=== PATIENT | female | born 1955 | race Caucasian/White ===

== ENCOUNTER 2017-10-31 12:13 | Day surgery (SDC) | payer BC ==
[2017-10-31 12:46] VITALS: RESP 18
[2017-10-31 12:50] VITALS: TEMP 97.9
[2017-10-31 13:20] VITALS: BP 141/78; PULSE 65
--- NOTE | 2017-10-31 13:35 | US ---
ULTRASOUND GUIDED FNA THYROID BIOPSY: CLINICAL HISTORY: Right thyroid nodule FINDINGS: The procedure was explained to the patient. The risks, complications, benefits and alternatives were discussed and any questions were answered. Informed consent was obtained. Patient was placed supin e on the ultrasound table and prepped and draped in the usual sterile fashion. Utilizing a 25 gauge needle, five passes were made into the requested right thyroid nodule. Patient was stable throughout the procedure. Pathology is pending. All elements of maximal barrier technique were utilized. IMPRESSION: 1. Successful ultrasound guided FNA thyroid biopsy.
== END 2017-10-31 14:00 | disposition home or self-care (01) ==
LOC: RADPROMAIN 12:13
PROVIDERS: ATTEND Otolaryngology
DX: E04.1 Nontoxic single thyroid nodule (principal)
CPT/HCPCS: 10022; 76942; 88173; 88305

== ENCOUNTER → 2018-02-11 | Outpatient (CLI) | payer BC ==
--- NOTE | 2018-02-11 14:09 | US ---
EXAMINATION TYPE: US thyroid st tissue head/neck DATE OF EXAM: 02/11/2018 COMPARISON: NONE CLINICAL HISTORY: 62-year-old female E04.1 Thyroid nodule. History of FNA TECHNIQUE: Multiple sonographic images of the thyroid gland are obtained. FINDINGS: GLAND SIZE: Right Lobe: 3.0 x 1.1 x 1.4 cm Overall Parenchyma: heterogenous Left Lobe: 4.8 x 1.6 x 2.8 cm Overall Parenchyma: heterogeneous Isthmus Thickness: 0.7 cm NODULES RIGHT: # of nodules measured on right: 1 1. 0.9 X 0.9 x 0.8 cm hypoechoic solid nodule at the lower pole with well-defined margins. This no dule is wider than tall and shows intranodular vascularity. Prior size: VP CONSTRUCTION LEFT: # of nodules measured on left: 0 ISTHMUS: # of nodules measured in the isthmus: 1 1. 1.1 X 1.3 x 1.2 cm hypoechoic solid nodule on the right with well-defined margins. This nodule is wider than tall and shows intranodular vascularity. Prior size: Previously measured at 1.3 x 1.1 cm. Bilateral neck scanned, no evidence of lymphadenopathy. IMPRESSION: 1. Right thyroid nodule measuring 9 mm (previously not measured) and previously sampled 1.3 cm right isthmic nodule which remain stable in size. 2. Heterogeneous glandular parenchyma could represent goiter, diffuse thyroiditis, or chronic hypothy roidism.
== END | disposition home or self-care (01) ==
LOC: RADUSWWP 10:49
PROVIDERS: ATTEND Otolaryngology
DX: E04.2 Nontoxic multinodular goiter (principal)
CPT/HCPCS: 76536

== ENCOUNTER → 2018-08-21 | Outpatient (CLI) | payer BC ==
--- NOTE | 2018-08-21 09:02 | US ---
EXAMINATION TYPE: US thyroid st tissue head/neck DATE OF EXAM: 08/21/2018 COMPARISON: 02/11/2018 ultrasound CLINICAL HISTORY: E04.1 thyroid nodule. Follow up thyroid nodules GLAND SIZE: Right Lobe: 2.9 x 1.4 x 1.6 cm Overall Parenchyma: heterogenous Left Lobe: 5.1 x 2.5 x 2.0 cm Overall Parenchyma: heterogeneous Isthmus Thickness: 0.5 cm NODULES RIGHT: # of nodules measured on right: 1 1. 0.8 X 0.7 x 0.7 cm hypoechoic solid nodule at the lower pole with well-defined margins; . This nodule is wider than tall and shows intranodular vascularity. Prior size: 0.9 x 0.9 x 0.8 cm LEFT: # of nodules measured on left: 0 ISTHMUS: # of nodules measured in the isthmus: 1 1. 1.1 X 0.9 x 1.0 cm hypoechoic solid nodule at the right with well-defined margins; . This nodul e is wider than tall and shows intranodular vascularity. Prior size: 1.1 x 1.3 x 1.2 cm IMPRESSION: 1. Stable thyroid nodule within the isthmus. 2. Subcentimeter nodule within the right lobe thyroid
== END | disposition home or self-care (01) ==
LOC: RADUSWWP 06:51
PROVIDERS: ATTEND Otolaryngology
DX: E04.1 Nontoxic single thyroid nodule (principal)
CPT/HCPCS: 76536

== ENCOUNTER → 2019-03-02 | Outpatient (CLI) | payer OTHER ==
--- NOTE | 2019-03-02 09:27 | US ---
EXAMINATION TYPE: US thyroid st tissue head/neck DATE OF EXAM: 03/02/2019 COMPARISON: US dated 08/21/2018 CLINICAL HISTORY: E04.1 Thyroid nodule. F/U previous GLAND SIZE: Right Lobe: 3.4 x 2.0 x 1.6 cm Overall Parenchyma: heterogenous Left Lobe: 4.9 x 2.6 x 1.8 cm Overall Parenchyma: heterogeneous Isthmus Thickness: 0.6 cm NODULES ISTHMUS: # of nodules measured in the isthmus: 1 1. 0.9 X 0.8 x 1.1 cm isoechoic solid nodule with poorly defined margins; This nodule is wider ghazala n tall and shows intranodular vascularity . Prior size: 1.0 x 0.9 x 1.1 cm Bilateral neck scanned, no evidence of lymphadenopathy. Right lobe nodule not visualized on today's e xam/ Isthmus nodule stable. Hypervascular, heterogeneous thyroid. IMPRESSION: Hypervascular diffusely heterogenous thyroid gland suggests thyroiditis. The previously seen right th yroid nodules not clearly separable on today's exam from the diffusely heterogenous echogenic echotex ture. However the isthmic nodule is stable.
== END | disposition home or self-care (01) ==
LOC: RADUSWWP 08:57
PROVIDERS: ATTEND Otolaryngology
DX: E04.1 Nontoxic single thyroid nodule (principal); E07.9 Disorder of thyroid, unspecified
CPT/HCPCS: 76536

== ENCOUNTER → 2019-09-20 | Outpatient (CLI) | payer OTHER ==
--- NOTE | 2019-09-20 11:17 | US ---
EXAMINATION TYPE: US thyroid st tissue head/neck DATE OF EXAM: 09/20/2019 COMPARISON: Thyroid ultrasounds dated 03/02/2019, 08/21/2018 and 02/11/2018 CLINICAL HISTORY: E04.3 THYROID NODULE. Follow up thyroid nodules GLAND SIZE: Right Lobe: 3.4 x 1.3 x 1.7 cm Overall Parenchyma: heterogenous Left Lobe: 5.0 x 1.8 x 2.0 cm Overall Parenchyma: heterogeneous Isthmus Thickness: 0.6 cm NODULES RIGHT: # of nodules measured on right: 0 LEFT: # of nodules measured on left: 0 ISTHMUS: # of nodules measured in the isthmus: 1 1. 0.9 X 0.8 x 0.9 cm isoechoic solid nodule with poorly defined margins; . This nodule is wider t veras tall and shows intranodular vascularity. Prior size: 0.9 x 0.8 x 1.1 cm Bilateral neck scanned, no evidence of abnormal lymphadenopathy. IMPRESSION: Is diffusely heterogenous and enlarged thyroid gland. Again correlation for thyroiditis is recommende d. Continued stability of the isthmic thyroid nodule.
== END | disposition home or self-care (01) ==
LOC: RADUSWWP 10:44
PROVIDERS: ATTEND Otolaryngology
DX: E04.1 Nontoxic single thyroid nodule (principal)
CPT/HCPCS: 76536

== ENCOUNTER → 2020-04-06 | Outpatient (CLI) | payer OTHER ==
--- NOTE | 2020-04-06 11:48 | US ---
EXAMINATION TYPE: US thyroid st tissue head/neck DATE OF EXAM: 04/06/2020 COMPARISON: NONE CLINICAL HISTORY: E04.1 THYROID NODULE. thyroid nodule GLAND SIZE: Right Lobe: 3.0 x .9 x 1.1 cm Overall Parenchyma: heterogenous Left Lobe: 4.8 x 1.7 x 1.4 cm Overall Parenchyma: heterogeneous Isthmus Thickness: .6 cm NODULES RIGHT: # of nodules measured on right: 0 LEFT: # of nodules measured on left: 0 ISTHMUS: # of nodules measured in the isthmus: 1 1. .8 X .5 x .7 cm hypoechoic solid nodule at the mid pole with poorly defined margins; . This nod ule is wider than tall and shows no intranodular vascularity. Prior size: .9 x .8 x .9 cm Bilateral neck scanned, no evidence of lymphadenopathy. IMPRESSION: 1. Subcentimeter nodule within the isthmus of the thyroid.
== END | disposition home or self-care (01) ==
LOC: RADUSWWP 10:50
PROVIDERS: ATTEND Otolaryngology
DX: E04.1 Nontoxic single thyroid nodule (principal)
CPT/HCPCS: 76536

== ENCOUNTER → 2021-04-03 | Outpatient (CLI) | payer MEDICARE, OTHER ==
--- NOTE | 2021-04-04 07:24 | US ---
EXAMINATION TYPE: US thyroid st tissue head/neck DATE OF EXAM: 04/03/2021 COMPARISON: 04/06/2020 CLINICAL HISTORY: E04.1 thyroid nodule. f/u GLAND SIZE: Right Lobe: 2.9 x 1.0 x 0.9 cm Overall Parenchyma: heterogenous Left Lobe: 3.9 x 1.1 x 1.3 cm Overall Parenchyma: heterogeneous Isthmus Thickness: 0.5 cm NODULES RIGHT: # of nodules measured on right: 0 LEFT: # of nodules measured on left: 0 ISTHMUS: # of nodules measured in the isthmus: 0 Bilateral neck scanned, no evidence of lymphadenopathy. IMPRESSION: No definite solid thyroid nodules are identified. 2017 ACR TI-RADS LEVEL: TR-RADS 1 - BENIGN: No FNA *Highest TI-RADS level nodule reported
== END | disposition home or self-care (01) ==
LOC: RADUSWWP 16:05
PROVIDERS: ATTEND Otolaryngology
DX: E04.1 Nontoxic single thyroid nodule (principal)
CPT/HCPCS: 76536

== ENCOUNTER → 2023-06-27 | Outpatient (CLI) | payer MEDICARE, OTHER ==
[2023-06-27 15:33] LABS: ALT 31 U/L (4-34); AST 33 U/L (14-36); African American GFR (CKD) >90 (>60 ml/min/1.73 sqM); Albumin/Globulin Ratio 1.2; Alkaline Phosphatase 73 U/L (38-126); Anion Gap 13 mmol/L; Blood Urea Nitrogen 13 mg/dL (7-17); Calcium 10.6 mg/dL (8.4-10.2); Carbon Dioxide 27 mmol/L (22-30); Chloride 95 mmol/L (98-107); Globulin 4.3 g/dL; Glucose 112 mg/dL (74-99); Non-African American GFR(CKD) >90 (>60 ml/min/1.73 sqM); Potassium 3.7 mmol/L (3.5-5.1); Sodium 135 mmol/L (137-145); Total Protein 9.3 g/dL (6.3-8.2)
[2023-06-27 15:41] LABS: NT-Pro-B-Type Natriuretic Pept 38 pg/mL
[2023-06-27 15:44] LABS: Creatine Kinase MB 0.9 ng/mL (0.0-3.4); Troponin I <0.012 ng/mL (0.000-0.034)
== END | disposition home or self-care (01) ==
LOC: LABWHC1 14:03
PROVIDERS: ATTEND Family Medicine
DX: R94.31 Abnormal electrocardiogram [ECG] [EKG] (principal)
CPT/HCPCS: 36415; 80053; 82553; 83880; 84484; 85379

== ENCOUNTER 2023-06-29 11:01 | Observation (INO) | payer MEDICARE, OTHER ==
[2023-06-29 12:04] LABS: Basophils % (A) 0 %; Eosinophils % (A) 0 %; HCT 44.4 % (34.0-46.0); HGB 16.5 gm/dL (11.4-16.0); Hyperchromasia Slight; Lymphocytes # (A) 2.1 k/uL (1.0-4.8); Lymphocytes % (A) 21 %; MCH 39.3 pg (25.0-35.0); MCHC 37.1 g/dL (31.0-37.0); Macrocytosis Moderate; Mean Platelet Volume 6.9; Monocytes # (A) 2.3 k/uL (0-1.0); Monocytes % (A) 23 %; Neutrophils # (A) 5.5 k/uL (1.3-7.7); Neutrophils % (A) 54 %; Platelet Count 171 k/uL (150-450); RBC 4.19 m/uL (3.80-5.40); RDW 14.2 % (11.5-15.5); WBC 10.1 k/uL (3.8-10.6)
[2023-06-29 12:23] LABS: African American GFR (CKD) >90 (>60 ml/min/1.73 sqM); Anion Gap 9 mmol/L; Blood Urea Nitrogen 11 mg/dL (7-17); Calcium 10.5 mg/dL (8.4-10.2); Carbon Dioxide 31 mmol/L (22-30); Chloride 92 mmol/L (98-107); Glucose 135 mg/dL (74-99); Magnesium 1.8 mg/dL (1.6-2.3); Non-African American GFR(CKD) >90 (>60 ml/min/1.73 sqM); Potassium 3.5 mmol/L (3.5-5.1); Sodium 132 mmol/L (137-145)
--- NOTE | 2023-06-29 12:47 | ED ---
General Adult HPI - General Chief complaint: Neuro Symptoms/Deficit Stated complaint: facial numbness-abn EKG Time Seen by Provider: 06/29/23 12:02 Source: patient Mode of arrival: ambulatory Limitations: no limitations - History of Present Illness Initial comments: This patient is a 67-year-old woman who comes here to have evaluation of a constellation of symptoms that been going on intermittently for the past 3 weeks or so. The patient states she gets upper chest pain that seems to spread to her neck or jaw. She states it will come on and last about 15-20 minutes at a time. Does not seem to be exertional. She has not noted worsening or relieving factors. She usually has some associated bilateral facial numbness. She states that she did see her primary physician on Friday, where they performed an ECG and then had her go for a blood tests. She does not know the blood test or results but states that they were then attempted to have her follow with cardiology. Patient states that she had another episode of the symptoms at 9 AM today that seemed to be lasting longer and was more severe. No associated diaphoresis, dyspnea, palpitations, lightheadedness or syncope. Onset/Timin -: week(s) Location: chest Radiation: neck Quality: dull Consistency: intermittent Improves with: none Worsens with: none Treatments Prior to Arrival: none - Related Data Home Medications Medication Instructions Recorded Confirmed Losartan/Hydrochlorothiazide 1 tab PO DAILY 10/21/17 06/29/23 [Losartan-Hctz 100-25 mg Tab] Multivit-Min/FA/Lycopen/Lutein 1 tab PO DAILY 10/21/17 06/29/23 [Centrum Silver Tablet] atenoloL [Tenormin] 25 mg PO DAILY 10/21/17 06/29/23 Alendronate Sodium 70 mg PO WE 06/29/23 06/29/23 Levothyroxine Sodium [Synthroid] 87.5 mcg PO LOPEZ 06/29/23 06/29/23 Levothyroxine Sodium [Synthroid] 175 mcg PO MOTUWETHFRSA 06/29/23 06/29/23 Potassium Chloride ER [K-Dur 20] 20 meq PO DAILY 06/29/23 06/29/23 Pravastatin Sodium [Pravachol] 40 mg PO HS 06/29/23 06/29/23 amLODIPine [Norvasc] 2.5 mg PO DAILY 06/29/23 06/29/23 Allergies Allergy/AdvReac Type Severity Reaction Status Date / Time No Known Allergies Allergy Verified 06/29/23 15:02 Review of Systems ROS Statement: Those systems with pertinent positive or pertinent negative responses have been documented in the HPI. ROS Other: All systems not noted in ROS Statement are negative. Constitutional: Denies: fever, chills, weakness Eyes: Denies: vision change Respiratory: Denies: cough, dyspnea Cardiovascular: Reports: as per HPI, chest pain. Denies: palpitations, edema, syncope Gastrointestinal: Denies: abdominal pain, nausea, vomiting, diarrhea Genitourinary: Denies: dysuria, hematuria Musculoskeletal: Denies: back pain Skin: Denies: rash Neurological: Reports: as per HPI, paresthesias. Denies: headache, weakness, numbness Past Medical History Past Medical History: Hyperlipidemia, Hypertension, Rheumatoid Arthritis (RA), Thyroid Disorder Additional Past Medical History / Comment(s): underactive thyroid, History of Any Multi-Drug Resistant Organisms: None Reported Past Surgical History: Adenoidectomy, Appendectomy, Tonsillectomy Past Anesthesia/Blood Transfusion Reactions: No Reported Reaction Past Psychological History: No Psychological Hx Reported Smoking Status: Never smoker Past Alcohol Use History: Occasional Past Drug Use History: None Reported - Past Family History Father Family Medical History: Hyperlipidemia, Thyroid Disorder Mother Family Medical History: Hypertension, Thyroid Disorder General Exam Limitations: no limitations General appearance: alert, in no apparent distress Head exam: Present: atraumatic, normocephalic Eye exam: Present: normal appearance. Absent: scleral icterus, conjunctival injection ENT exam: Present: normal oropharynx Neck exam: Present: normal inspection, full ROM Respiratory exam: Present: normal lung sounds bilaterally. Absent: respiratory distress, wheezes, rales, rhonchi, stridor Cardiovascular Exam: Present: regular rate, normal rhythm, normal heart sounds. Absent: systolic murmur, diastolic murmur, rubs, gallop GI/Abdominal exam: Present: soft. Absent: distended, tenderness, guarding, rebound, rigid, mass Extremities exam: Present: normal inspection, normal capillary refill. Absent: pedal edema, calf tenderness Back exam: Present: normal inspection. Absent: CVA tenderness (R), CVA tenderness (L) Neurological exam: Present: alert Skin exam: Present: warm, dry, intact, normal color. Absent: rash Course Vital Signs 06/29/23 06/29/23 06/29/23 11:16 14:50 18:27 Temperature 98.1 F Pulse Rate 58 L 57 L 68 Pulse Rate [ Pulse Oximetery ] Respiratory 20 18 18 Rate Blood Pressure 182/97 157/98 143/107 Blood Pressure [Left Arm] O2 Sat by Pulse 99 97 97 Oximetry 06/29/23 06/30/23 20:29 01:56 Temperature 98.2 F 98.1 F Pulse Rate Pulse Rate [ 56 L 57 L Pulse Oximetery ] Respiratory 16 16 Rate Blood Pressure Blood Pressure 158/95 137/76 [Left Arm] O2 Sat by Pulse 96 96 Oximetry EKG Findings - EKG Results: EKG: interpreted by DENICE, sinus rhythm EKG shows: bradycardia (Rate 57 bpm) - Blocks, [place], Hypertrophy, ST Abn: AV and intraventricular conduction: right bundle branch block (fixed/intermittent, complete/incomplete) QRS axis and voltage: left axis deviation (-30 to -90) (Borderline) Medical Decision Making - Lab Data Result diagrams: 06/29/23 11:40 06/29/23 11:40 Lab Results 06/29/23 06/29/23 06/29/23 Range/Units 11:40 11:40 11:40 WBC 10.1 (3.8-10.6) k/uL RBC 4.19 (3.80-5.40) m/uL Hgb 16.5 H (11.4-16.0) gm/dL Hct 44.4 (34.0-46.0) % MCV 106.0 H (80.0-100.0) fL MCH 39.3 H (25.0-35.0) pg MCHC 37.1 H (31.0-37.0) g/dL RDW 14.2 (11.5-15.5) % Plt Count 171 (150-450) k/uL MPV 6.9 Neutrophils % 54 % Lymphocytes % 21 % Monocytes % 23 % Eosinophils % 0 % Basophils % 0 % Neutrophils # 5.5 (1.3-7.7) k/uL Lymphocytes # 2.1 (1.0-4.8) k/uL Monocytes # 2.3 H (0-1.0) k/uL Eosinophils # 0.0 (0-0.7) k/uL Basophils # 0.0 (0-0.2) k/uL Hyperchromasia Slight Macrocytosis Moderate Sodium 132 L (137-145) mmol/L Potassium 3.5 (3.5-5.1) mmol/L Chloride 92 L (98-107) mmol/L Carbon Dioxide 31 H (22-30) mmol/L Anion Gap 9 mmol/L BUN 11 (7-17) mg/dL Creatinine 0.59 (0.52-1.04) mg/dL Est GFR (CKD-EPI)AfAm >90 (>60 ml/min/1.73 sqM) Est GFR (CKD-EPI)NonAf >90 (>60 ml/min/1.73 sqM) Glucose 135 H (74-99) mg/dL Calcium 10.5 H (8.4-10.2) mg/dL Magnesium 1.8 (1.6-2.3) mg/dL Troponin I <0.012 (0.000-0.034) ng/mL Disposition Clinical Impression: Chest pain Disposition: ADMITTED IP TO THIS [facility] Condition: Good
--- NOTE | 2023-06-29 13:12 | XR ---
EXAMINATION TYPE: XR chest 2V DATE OF EXAM: 06/29/2023 COMPARISON: NONE TECHNIQUE: PA and lateral views submitted. HISTORY: Chest pain FINDINGS: The lungs are clear and there is no pneumothorax, pleural effusion, or focal pneumonia. Heart size normal and no overt failure. Osseous structures demonstrate hypertrophic and degenerative changes of the spine. Diffuse osteopenia with AC joint arthropathy. IMPRESSION: 1. No acute process.
[2023-06-29] MEDS ORDERED: MORPHINE SULFATE 4 MG/ML SYRINGE IV STA (14:08)
[2023-06-29] MEDS ORDERED: NITROGLYCERIN SL TABS 0.4 MG TAB SUBLINGUAL PRN (14:38)
[2023-06-29] MEDS: SODIUM CHLORIDE 0.9% 1,000 ML IV SCH (14:57)
--- NOTE | 2023-06-29 18:14 | P.HPIM ---
History of Present Illness H&P Date: 06/29/23 67-year-old female with PMH of rheumatoid arthritis, Paco's thyroiditis, thyroid nodules, hypertension, dyslipidemia presents to the ED for chest discomfort. She describes midsternal chest discomfort. She has a difficult time describing her discomfort but closely relates it to burning. The d iscomfort radiates upwards into her neck. She also experiences bilateral lower facial numbness during this time. Patient reports symptoms that has been ongoing over the past 3 weeks. Her symptoms have been intermittent but have been increasing in frequency. This usually lasts for about 10-15 minutes. Not related to meals or exertion. Does not wake her up from sleep. She denies any slurred speech, confusion, focal neurologic deficits. No difficulty swallowing. This morning, her symptoms started while eating breakfast and were persistent which prompted her to come to the ED. She does report peripheral neuropathy. Initially, she was supposed to see cardiology in the outpatient setting but and appointment has not been given to her at this time. She reports no exertional chest pain, shortness of breath, lightheadedness. She denies headache, lower extremity edema, nausea or vomiting, fever or chills, cough, palpitations, changes in urination or bowel habits. No changes in appetite or weight. In the ED, she was noted to have elevated BP of 182/97. She was noted to be bradyca rdic with heart rate of 57. Vital signs otherwise stable. CBC showed hemoglobin of 16.5 and MCV of 106. BMP showed sodium of 132, chloride of 92, bicarb of 31, glucose of 135 and calcium of 10.5. Magnesium was 1.8. Troponin was less than 0.012. EKG showed right bundle branch block. Chest x-ray negative for acute process. Patient is admitted for chest pain, rule out acute coronary syndrome and cardiology consultation. General: non toxic, no distress, appears at stated age Derm: warm, dry Head: atraumatic, normocephalic, symmetric Eyes: EOMI, no lid lag, anicteric sclera Cardiovascular: S1S2 reg, no murmur Lungs: CTA bilateral, no rhonchi, no rales , no accessory muscle use Ext: no gross muscle atrophy, no edema, no contractures Neuro: no focal neuro deficits Psych: Alert, oriented, appropriate affect Chest pain, atypical Bilateral facial numbness Hyperglycemia Sinus bradycardia with right bundle branch block Macrocytosis Hypercalcemia Chronic conditions: Rheumatoid arthritis, Paco's thyroiditis, thyroid nodules, hypertension, dyslipidemia Based on my assessment of this patient, this patient meets a high complexity level of care. Patient has an acute diagnosis of chest pain that poses a threat to life or bodily function. She also describes bilateral facial numbness (cheeks). Chest pain, atypical: Troponins negative x 2. ACS ruled out. Obtain Echocardiogram. Telemetry monitoring. Cardiology consult. Bilateral facial numbness: Patient reports biateral facial numbness when experiencing this chest discomofort. Unlikely to be CVA given bilateral nature and lack of FND. RA is known to cause peripheral neuropathy. Obtain TSH, B12, Folate, A1c, ionized Ca. Obtain thyroid US. Hyperglycemia: A1c. Sinus bradycardia with right bundle branch block: Bradycardia possibly related to Atenolol. Macrocytosis: B12, Folate. Hypercalcemia: Obtain PTH and vitamin D. Chronic conditions: Rheumatoid arthritis, Paco's thyroiditis, thyroid nodules, hypertension, dyslipidemia Heparin for DVT prophylaxis. Brother is decision maker. FULL CODE. I have reviewed the following independent marketing consultant notes: I have reviewed the results of the following tests: CBC, BMP, Mg, Trop, CXR I have ordered the following tests: CMP, Echo, TSH, B12, thyroid US, ionized Ca, thyroid US, PTH, vitamin D I have discussed the care of this patient with the following independent historian: I have independently interpreted the following test below: EKG I have discussed the management of this patient with the following physician: Past Medical History Past Medical History: Hyperlipidemia, Hypertension, Rheumatoid Arthritis (RA), Thyroid Disorder Additional Past Medical History / Comment(s): underactive thyroid, History of Any Multi-Drug Resistant Organisms: None Reported Past Surgical History: Adenoidectomy, Appendectomy, Tonsillectomy Past Anesthesia/Blood Transfusion Reactions: No Reported Reaction Past Psychological History: No Psychological Hx Reported Smoking Status: Never smoker Past Alcohol Use History: Occasional Past Drug Use History: None Reported - Past Family History Father Family Medical History: Hyperlipidemia, Thyroid Disorder Mother Family Medical History: Hypertension, Thyroid Disorder Medications and Allergies Home Medications Medication Instructions Recorded Confirmed Type Losartan/Hydrochlorothiazide 1 tab PO DAILY 10/21/17 06/29/23 History [Losartan-Hctz 100-25 mg Tab] Multivit-Min/FA/Lycopen/Lutein 1 tab PO DAILY 10/21/17 06/29/23 History [Centrum Silver Tablet] atenoloL [Tenormin] 25 mg PO DAILY 10/21/17 06/29/23 History Alendronate Sodium 70 mg PO WE 06/29/23 06/29/23 History Levothyroxine Sodium [Synthroid] 87.5 mcg PO LOPEZ 06/29/23 06/29/23 History Levothyroxine Sodium [Synthroid] 175 mcg PO MOTUWETHFRSA 06/29/23 06/29/23 History Potassium Chloride ER [K-Dur 20] 20 meq PO DAILY 06/29/23 06/29/23 History Pravastatin Sodium [Pravachol] 40 mg PO HS 06/29/23 06/29/23 History amLODIPine [Norvasc] 2.5 mg PO DAILY 06/29/23 06/29/23 History Allergies Allergy/AdvReac Type Severity Reaction Status Date / Time No Known Allergies Allergy Verified 06/29/23 15:02 Physical Exam Vitals: Vital Signs Temp Pulse Resp BP Pulse Ox 06/29/23 14:50 57 L 18 157/98 97 06/29/23 11:16 98.1 F 58 L 20 182/97 99 Intake and Output 06/29/23 06/29/23 06/29/23 06:59 14:59 22:59 Other: Weight 79.832 kg Results CBC & Chem 7: 06/29/23 11:40 06/29/23 11:40 Labs: Abnormal Lab Results - Last 24 Hours (Table) 06/29/23 06/29/23 Range/Units 11:40 11:40 Hgb 16.5 H (11.4-16.0) gm/dL MCV 106.0 H (80.0-100.0) fL MCH 39.3 H (25.0-35.0) pg MCHC 37.1 H (31.0-37.0) g/dL Monocytes # 2.3 H (0-1.0) k/uL Sodium 132 L (137-145) mmol/L Chloride 92 L (98-107) mmol/L Carbon Dioxide 31 H (22-30) mmol/L Glucose 135 H (74-99) mg/dL Calcium 10.5 H (8.4-10.2) mg/dL
[2023-06-29 20:35] VITALS: RESP 16
[2023-06-29] MEDS: FAMOTIDINE 20 MG TAB PO SCH (20:47)
[2023-06-29] MEDS ORDERED: PRAVASTATIN SODIUM 40 MG TAB PO SCH (21:00)
--- NOTE | 2023-06-29 21:17 | US ---
EXAMINATION TYPE: US thyroid st tissue head/neck DATE OF EXAM: 06/29/2023 COMPARISON: 04/04/2021 CLINICAL INDICATION: Female, 67 years old with history of h/o nodules; follow up to previous GLAND SIZE: Right Lobe: 2.9 x .8 x 1..0 cm Overall Parenchyma: heterogenous Left Lobe: 3.2 x 1.5 x 1.1 cm Overall Parenchyma: heterogenous Isthmus Thickness: .5 cm NODULES RIGHT: # of nodules measured on right: 0 LEFT: # of nodules measured on left: 0 ISTHMUS: # of nodules measured in the isthmus: 0 Bilateral neck scanned, no evidence of lymphadenopathy. IMPRESSION: No evidence of thyroid nodules. 2017 ACR TI-RADS LEVEL: 1 *Highest TI-RADS level nodule reported
[2023-06-30] MEDS ORDERED: LEVOTHYROXINE 75 MCG TAB PO SCH (06:30)
[2023-06-30] MEDS ORDERED: LEVOTHYROXINE 88 MCG TAB PO SCH (06:30)
--- NOTE | 2023-06-30 08:53 | P.CRDCN ---
History of Present Illness Consult date: 06/30/23 Consult reason: chest pain History of present illness: History of present illness: This is a 67-year-old female with past medical history of hypertension, hyperlipidemia, hypothyroidism, no previous cardiac history. She does not follow with a tie tape machine operator. She may have had a stress test done many years ago but has never had a cyst cardiac catheterization. We have been asked to evaluate the patient for chest pain. Patient states that she had an onset sensation in her upper chest that since going on and off for the past 3 weeks. It lasts for about 5-10 minutes and goes away on its own. It usually happens while she is at rest. She is normally quite active and it does not occur with activity. She saw her nurse practitioner on Friday and was noted to have an abnormal EKG and plan was for her to have an appointment with a tie tape machine operator. On Friday however, when she got up she was feeling good but after breakfast the chest discomfort came back and it didn't seem to go away. She also states that went up into her neck and face with numbness. She denies any smoking history. She drinks alcohol occasionally. EKG sinus rhythm with right bundle branch block Chest x-ray: No acute process Thyroid ultrasound revealed no nodules WBC 10.1, hemoglobin 16.5, platelet count 171. Sodium 132, potassium 3.5, BUN 11 creatinine 0.59. Blood sugar 135. Calcium 10.5. Troponin negative 3. Folate 40. TSH 0.111 with normal free T4 1 0.9. Home cardiac medications: Amlodipine 2.5 mg daily, atenolol 25 mg daily, losartan hydrochlorothiazide 53936 milligrams 1 daily, potassium chloride 20 mEq daily, pravastatin 40 mg at bedtime, levothyroxine 175 g Friday through Friday and 87.5 on Friday. Review Of Systems: At the time of my evaluation: Constitutional: No fever, no chills. No weakness, fatigue or lethargy. EENT: No headache. No dizziness. Lungs: No shortness of breath, cough, no sputum production. No wheezing. Cardiovascular: No chest pain, no lower extremity edema. No palpitations. No paroxysmal nocturnal dyspnea. No orthopnea. No lightheadedness or dizziness. No syncopal episodes. Abdominal: No abdominal pain. No nausea, vomiting. No diarrhea. No constipation. No bloody or tarry stools. Genitourinary: No dysuria.. No urinary retention. Musculoskeletal: No myalgias. No muscle weakness, no frequent falls. No back pain. No neck pain. Integumentary: No wounds. No rash. No unusual bruising. Neurologic: No aphasia. No facial droop. No change in mentation. No head injury. No headache. Physical examination: Gen: This is a 67-year-old female. She is resting but appears very comfortable and in no acute distress VS: reviewed HEENT: Head is atraumatic, normocephalic. Pupils equal, round. Sclerae is anicteric. NECK: Supple. No JVD. LUNGS: Clear to auscultation. No wheezes or rhonchi. No intercostal retractions. HEART: Regular rate and rhythm. No murmur. ABDOMEN: Soft No tenderness. EXTREMITIES: No pedal edema. No calf tenderness. NEUROLOGICAL: Patient is awake, alert and oriented x3. Assessment: Atypical chest pain, acute coronary syndrome ruled out Hypertension Hyperlipidemia Hypothyroidism Plan: Resume patient's home diabetic medications Obtain stress echocardiogram Obtain 2-D echocardiogram and Doppler study to assess cardiac structure and function Further recommendations to follow based upon clinical course Thank you kindly for this consultation. Nurse practitioner note has been reviewed, I agree with documented findings and plan of care. Patient was seen and examined. Past Medical History Past Medical History: Hyperlipidemia, Hypertension, Rheumatoid Arthritis (RA), Thyroid Disorder Additional Past Medical History / Comment(s): underactive thyroid, History of Any Multi-Drug Resistant Organisms: None Reported Past Surgical History: Adenoidectomy, Appendectomy, Tonsillectomy Past Anesthesia/Blood Transfusion Reactions: No Reported Reaction Past Psychological History: No Psychological Hx Reported Smoking Status: Never smoker Past Alcohol Use History: Occasional Past Drug Use History: None Reported - Past Family History Father Family Medical History: Hyperlipidemia, Thyroid Disorder Mother Family Medical History: Hypertension, Thyroid Disorder Medications and Allergies Home Medications Medication Instructions Recorded Confirmed Type Losartan/Hydrochlorothiazide 1 tab PO DAILY 10/21/17 06/29/23 History [Losartan-Hctz 100-25 mg Tab] Multivit-Min/FA/Lycopen/Lutein 1 tab PO DAILY 10/21/17 06/29/23 History [Centrum Silver Tablet] atenoloL [Tenormin] 25 mg PO DAILY 10/21/17 06/29/23 History Alendronate Sodium 70 mg PO WE 06/29/23 06/29/23 History Levothyroxine Sodium [Synthroid] 87.5 mcg PO LOPEZ 06/29/23 06/29/23 History Levothyroxine Sodium [Synthroid] 175 mcg PO MOTUWETHFRSA 06/29/23 06/29/23 History Potassium Chloride ER [K-Dur 20] 20 meq PO DAILY 06/29/23 06/29/23 History Pravastatin Sodium [Pravachol] 40 mg PO HS 06/29/23 06/29/23 History amLODIPine [Norvasc] 2.5 mg PO DAILY 06/29/23 06/29/23 History Allergies Allergy/AdvReac Type Severity Reaction Status Date / Time No Known Allergies Allergy Verified 06/29/23 15:02 Physical Exam Vitals: Vital Signs Temp Pulse Pulse Resp BP BP Pulse Ox 06/30/23 01:56 98.1 F 57 L 16 137/76 96 06/29/23 20:29 98.2 F 56 L 16 158/95 96 06/29/23 18:27 68 18 143/107 97 06/29/23 14:50 57 L 18 157/98 97 06/29/23 11:16 98.1 F 58 L 20 182/97 99 Intake and Output 06/29/23 06/30/23 06/30/23 22:59 06:59 14:59 Intake Total 450 Balance 450 Intake: Intake, IV Titration 200 Amount Sodium Chloride 0.9% 1, 200 000 ml @ 20 mls/hr IV . Q24H [facility] Rx#:[id number] Oral 250 Other: # Voids 1 Weight 79.832 kg Results 06/29/23 11:40 06/29/23 11:40 Cardiac Enzymes 06/29/23 06/29/23 06/29/23 Range/Units 11:40 15:40 18:39 Troponin I <0.012 <0.012 <0.012 (0.000-0.034) ng/mL CBC 06/29/23 Range/Units 11:40 WBC 10.1 (3.8-10.6) k/uL RBC 4.19 (3.80-5.40) m/uL Hgb 16.5 H (11.4-16.0) gm/dL Hct 44.4 (34.0-46.0) % Plt Count 171 (150-450) k/uL Comprehensive Metabolic Panel 06/29/23 Range/Units 11:40 Sodium 132 L (137-145) mmol/L Potassium 3.5 (3.5-5.1) mmol/L Chloride 92 L (98-107) mmol/L Carbon Dioxide 31 H (22-30) mmol/L BUN 11 (7-17) mg/dL Creatinine 0.59 (0.52-1.04) mg/dL Glucose 135 H (74-99) mg/dL Calcium 10.5 H (8.4-10.2) mg/dL Current Medications Generic Name Dose Route Start Last Admin Trade Name Freq PRN Reason Stop Dose Admin Amlodipine Besylate 2.5 mg 06/30/23 09:00 Amlodipine 2.5 Mg Tab PO DAILY [facility] Aspirin 81 mg 06/30/23 09:00 Aspirin 81 Mg PO DAILY [facility] Atenolol 25 mg 06/30/23 09:00 Atenolol 25 Mg Tab PO DAILY [facility] Ezetimibe 10 mg 06/30/23 09:00 Ezetimibe 10 Mg Tab PO DAILY [facility] Famotidine 20 mg 06/29/23 21:00 06/29/23 20:47 Famotidine 20 Mg Tab PO 20 mg BID [facility] Administration HCTZ/Losartan Potassium 2 each 06/30/23 09:00 Losartan-Hctz 50-12.5 Mg 1 Each Tab PO DAILY [facility] Sodium Chloride 1,000 mls @ 20 mls/hr 06/29/23 14:45 06/29/23 14:57 Saline 0.9% IV Not Given .Q24H [facility] Magnesium Sulfate/Dextrose 1 100 mls @ 100 mls/hr 06/30/23 07:30 gm/ IV Solution IVPB 06/30/23 10:29 Q1H [facility] Levothyroxine Sodium 150 mcg 06/30/23 06:30 Levothyroxine 75 Mcg Tab PO DAILY@0630 [facility] Montelukast Sodium 10 mg 06/30/23 09:00 Montelukast 10 Mg Tab PO DAILY [facility] Nitroglycerin 0.4 mg 06/29/23 14:38 Nitroglycerin Sl Tabs 0.4 Mg Tab SUBLINGUAL Q5M PRN Chest Pain Pravastatin Sodium 40 mg 06/29/23 21:00 06/29/23 20:47 Pravastatin Sodium 40 Mg Tab PO 40 mg HS [facility] Administration Ropinirole HCl 0.5 mg 06/29/23 21:00 06/29/23 20:47 Ropinirole Hcl 0.25 Mg Tab PO 0.5 mg HS MARIS Administration Intake and Output 06/29/23 06/30/23 06/30/23 22:59 06:59 14:59 Intake Total 450 Balance 450 Intake: Intake, IV Titration 200 Amount Sodium Chloride 0.9% 1, 200 000 ml @ 20 mls/hr IV . Q24H [facility] Rx#:[id number] Oral 250 Other: # Voids 1 Weight 79.832 kg 06/29/23 11:40 06/29/23 11:40
[2023-06-30] MEDS: EZETIMIBE 10 MG TAB PO SCH ×2 (08:59→09:05)
[2023-06-30] MEDS: MONTELUKAST 10 MG TAB PO SCH ×2 (08:59→09:02)
[2023-06-30] MEDS: FAMOTIDINE 20 MG TAB PO SCH (08:59)
[2023-06-30] MEDS ORDERED: PRAVASTATIN SODIUM 20 MG TAB PO SCH (09:00)
[2023-06-30] MEDS ORDERED: atenoloL 25 MG TAB PO SCH (09:00)
[2023-06-30] MEDS ORDERED: LOSARTAN-HCTZ 50-12.5 MG 1 EACH TAB PO SCH (09:00)
[2023-06-30] MEDS ORDERED: amLODIPine 2.5 MG TAB PO SCH (09:00)
[2023-06-30] MEDS: MAGNESIUM SULFATE-D5W PMX 1 GM in DEXTROSE/WATER 1 100ML.BAG IVPB SCH ×3 (09:00→13:37)
[2023-06-30] MEDS ORDERED: ASPIRIN 81 MG PO SCH (09:00)
[2023-06-30] MEDS ORDERED: ASPIRIN 325 MG TAB PO SCH (09:00)
[2023-06-30 09:36] VITALS: TEMP 98
[2023-06-30 11:08] LABS: ALT 25 U/L (8-44); AST 20 U/L (13-35); Albumin 4.7 d/dL (3.8-4.9); Albumin/Globulin Ratio 1.47 Ratio (1.60-3.17); Alkaline Phosphatase 51 U/L (41-126); Blood Urea Nitrogen 10.8 mg/dL (9.0-27.0); Carbon Dioxide 27.8 mmol/L (21.6-31.8); Chloride 94 mmol/L (96-109); Chol/HDL Ratio 3.53 Ratio; Globulin 3.2 d/dL (1.6-3.3); Glucose 113 mg/dL (70-110); LDL Cholesterol,Calculated 79.7 mg/dL (0.0-131.0); Potassium 3.4 mmol/L (3.5-5.5); Sodium 133 mmol/L (135-145); Total Bilirubin 1.1 mg/dL (0.3-1.2); Total Protein 7.9 d/dL (6.2-8.2)
--- NOTE | 2023-06-30 14:52 | CA ---
Transthoracic Echo Report Name: Brenna Law Age: 67 Gender: F : 1955 Exam Date: 06/30/2023 11:41 Exam Location: [place] Echo Ht (in): 64 Wt (lb): 176 Ordering Physician: Mela Ortiz MD Attending/Referring Phys: Locomotive Firer Lilly Owusu RDCS Procedure CPT: Indications: CP Cardiac Hx: Technical Quality: Good Contrast 1: Total Dose (mL): Contrast 2: Total Dose (mL): MEASUREMENTS (Male / Female) Normal Values 2D ECHO LV Diastolic Diameter PLAX 4.3 cm 4.2 - 5.9 / 3.9 - 5.3 cm LV Systolic Diameter PLAX 2.7 cm IVS Diastolic Thickness 1.3 cm 0.6 - 1.0 / 0.6 - 0.9 cm LVPW Diastolic Thickness 1.1 cm 0.6 - 1.0 / 0.6 - 0.9 cm LV Relative Wall Thickness 0.6 RV Internal Dim ED PLAX 3.4 cm LA Systolic Diameter LX 3.7 cm 3.0 - 4.0 / 2.7 - 3.8 cm LV Diastolic Volume MOD 4C 87.8 cm??? LV Systolic Volume MOD 4C 47.2 cm??? LV Ejection Fraction MOD 4C 46.2 % LV Cardiac Index MOD 4C 1516.6 cm???/min???m??? LV Diastolic Length 4C 8.2 cm LV Systolic Length 4C 6.9 cm LV Diastolic Volume MOD 2C 57.3 cm??? LV Systolic Volume MOD 2C 32.0 cm??? LV Ejection Fraction MOD 2C 44.2 % LV Cardiac Index MOD 2C 946.8 cm???/min???m??? LV Diastolic Length 2C 6.8 cm LV Systolic Length 2C 6.3 cm LA Volume 30.3 cm??? 18 - 58 / 22 - 52 cm??? M-MODE Aortic Root Diameter MM 3.2 cm MV E Point Septal Separation 1.2 cm AV Cusp Separation MM 2.0 cm DOPPLER AV Peak Velocity 113.7 cm/s AV Peak Gradient 5.2 mmHg MV Area PHT 3.0 cm??? Mitral E Point Velocity 61.5 cm/s Mitral A Point Velocity 84.7 cm/s Mitral E to A Ratio 0.7 MV Deceleration Time 254.2 ms MV E' Velocity 3.0 cm/s Mitral E to MV E' Ratio 20.5 TR Peak Velocity 218.1 cm/s TR Peak Gradient 19.0 mmHg Right Ventricular Systolic Press 24.0 mmHg FINDINGS Left Ventricle Left ventricular ejection fraction is estimated at 55-60 %. Left ventricular cavity size normal. Mildly increased septal wall thickness. Mildly increased posterior wall thickness. Right Ventricle Mild right ventricular dilatation. Right ventricular systolic pressure within normal limits. Right Atrium Normal right atrial size. Left Atrium Normal left atrial size. Mitral Valve Structurally normal mitral valve. No mitral stenosis, regurgitation or prolapse. Aortic Valve Trileaflet aortic valve. No aortic valve stenosis or regurgitation. Tricuspid Valve Structurally normal tricuspid valve. Mild tricuspid regurgitation. Pulmonic Valve Structurally normal pulmonic valve. No pulmonic regurgitation. Pericardium No pericardial effusion. Aorta Normal size aortic root and proximal ascending aorta. CONCLUSIONS Left ventricular ejection fraction 55-60% Mildly increased left ventricular wall thickness No mitral regurgitation Mild tricuspid regurgitation RVSP 24 Previewed by: Dr. Edmundo Sanon DO (Electronically Signed) Final Date: 30 June 2023 14:51
[2023-06-30] MEDS: SODIUM CHLORIDE 0.9% 1,000 ML IV SCH (15:08)
[2023-06-30 15:24] VITALS: BP 132/89; PULSE 79
--- NOTE | 2023-06-30 16:15 | CA ---
Stress Echo Report Brenna Law Age: 67 Gender: F : 1955 Exam Date: 06/30/2023 11:03 Exam Location: [place] Stress Ht (in): 64 Wt (lb): 176 Ordering Physician: Caryl Dean Referring Physician: [id number] Billposter: Chet Flores Technologist Procedure CPT: Indication: CP ICD-9 Codes: Rhythm: Patient History: Cardiac Medications: Medications in past 24 hours: Contrast: N/A Stress Results Protocol: Dieudonne Total dose(mL): Exercise Duration (min:sec): 6:[address] Depression (mm): Angina Score: Knight Score: METS: 8.1 Resting HR: 104 Resting BP: 157 / 99 Peak HR: 145 Peak BP: 219 / 112 Max Predicted HR: 153 95 % Max Predicted HR Target HR: 130 Double Product: [id number] Stress Summary: BP Response: Reason for Termination: MAX EXERTION/TARGET HR Cardiac Symptoms: NO SYMPTOMS ECG Analysis Resting ECG: Stress ECG: Arrhythmia: Echo Analysis Resting Echo: Peak Echo Analysis: MEASUREMENTS (Male/Female) Normal Values CONCLUSIONS Patient underwent exercise stress echo with a Dieudonne protocol treadmill stress test. Patient exercised into Stage 3 for a total of 6 minutes and 46 seconds reaching a total of 8.1 METS. Patient's maximum heart rate was 145 which represented 94 % age- predicted maximum heart rate. Stress EKG portion: At baseline patient's EKG showed normal sinus rhythm, right bundle-branch block with nonspecific ST depressions V3, V4, 3 and aVF. At peak exercise, EKG showed mild accentuation of baseline EKG abnormalities. Stress echo portion: 2-D echocardiogram was performed in the parasternal long, personal short, apical 2 and apical four-chamber views at rest, peak exercise and in recovery. At baseline, echocardiogram showed left ventricular ejection fraction 60% without wall motion abnormalities. With peak exercise, echocardiogram shows improvement in left ventricular ejection fraction, increase contractility, decrease in left ventricular end systolic dimension without wall motion abnormalities consistent with a normal response to exercise. Conclusions: 1. Nonspecific stress EKG portion secondary baseline EKG abnormalities 2. Normal stress echo response to exercise without evidence of inducible ischemia. 3. Fair exercise capacity. Dr. Edmundo Sanon DO (Electronically Signed) Final Date: 30 June 2023 16:14
[2023-06-30] MEDS ORDERED: POTASSIUM CHLORIDE ER 20 MEQ TAB.ER PO STA (16:42)
--- NOTE | 2023-06-30 16:54 | P.DS ---
Providers Date of admission: 06/29/23 14:38 Expected date of discharge: 06/30/23 Attending physician: Mela Ortiz MD Consults: 06/29/23 14:38 Consult Physician Routine Consulting Provider: Jeanmarie Garcia Consult Reason/Comments: chest pain Do you want consulting provider notified?: Yes Primary care physician: [facility] Course: Discharge Diagnosis: Atypical chest pain, acute coronary event ruled out. Transient episode of Numbness/tingling around the mouth, possibly secondary to electrolyte deficiency. Potassium and magnesium were replaced. Ionized calcium normal findings at 5.1. B12 on the lower end of normal at 360. Patient discharged home on B12 supplements daily. Paco's thyroiditis. Patient to continue daily medication regimen with Synthroid 175 g daily.TSH low at 0.111 with normal free T4 of 1.90 and normal PTH of 47.4. Thyroid ultrasound was normal findings showing no thyroid nodules or abnormalities reported. Hyperlipidemia Hypertension Hospital Course: Patient is a pleasant 67-year-old female with a past medical history of rheumatoid arthritis, Paco's thyroiditis, hypertension, and hyperlipidemia. She presented to the emergency department on 06/29/23 with a chief complaint of chest pain/discomfort that she reported radiated upward throughout her chest into her neck accompanied by some mild numbness around her lips. She underwent full evaluation in the emergency department. An EKG was completed showing sinus bradycardia at 57 bpm with T-wave inversion in inferior leads 2, 3, and aVF and a right bundle branch block. A chest x-ray was completed which was negative for acute cardiopulmonary process. Ultrasound head/neck completed negative for thyroid nodules or any other reported abnormalities. Labs completed and reviewed. CBC showing macrocytosis with MCV of 106. BMP revealing hyponatremia with sodium of 132, hyperchloremia with chloride of 92, and elevated bicarb of 31. Calcium was elevated at 10.5 with ionized calcium of 5.1. Troponin was negative at less than 0.012. Patient was admitted under our services with consultation to cardiology. Pt monitored overnight and had full resolution of previous reported chest pain and numbness/tingling around her mouth. Troponins were trended overnight all negative at less than 0.0123 draws. Hemoglobin A1c 5.6%. Lipid profile showing elevated triglycerides of 193 otherwise normal findings. Vitamin B12 on the lower side of normal at 360, folate was elevated at 40. TSH was low at 0.111 with normal free T4 of 1.90 and PTH of 47.4. Magnesium resulting low at 1.6 and orders placed for replacement with 3 g magnesium sulfate IVPB. Repeat potassium also slightly low at 3.4 and orders placed for a daughter 40 mEq 1 dose. Echocardiogram completed showing preserved EF of 55-60% with no significant structural or valvular abnormalities. Stress echo showing nonspecific stress EKG portion secondary to baseline EKG or abnormalities, otherwise normal stress echo response to exercise without evidence of inducible ischemia. Cardiology clearing patient from cardiac perspective for discharge recommending outpatient follow-up in their office in 1-2 weeks. Medically, patient remains stable at this time. Patient being discharged home with B12 supplements otherwise no medication changes were made during this admission. Medically, patient is stable and to follow up outpatient with PCP in 1-2 days and cardiology in 1 week. Physical exam: Patient seen and examined at bedside. Vital signs reviewed and stable. General: Nontoxic, no distress and appears stated age. Derm: Skin warm and dry, normal coloration for ethnicity. Head: Atraumatic, normocephalic and symmetric. Eyes: EOMs intact, no lid lag, and anicteric sclera Mouth: no lip lesions, mucus membranes moist Cardiovascular: regular rate and rhythm with normal S1S2, no murmur, positive posterior tibial pulses bilaterally, and cap refill < 2 seconds. Lungs: Respirations even, regular, and unlabored on room air. Lungs CTA bilaterally, no rhonchi, no rales, no wheezing, and no accessory muscle usage. Abdominal: soft, nontender to palpation, no guarding, no appreciable organomegaly Ext: ROM intact. No gross muscle atrophy, no edema, no contractures Neuro: Speech clear, face symmetrical and CN II-XII grossly intact with no noted focal neuro deficits Psych: Alert and oriented to person, place, time, and situation. Appropriate and pleasant affect. A total of 34 minutes of time were spent preparing this complex discharge summary. Pt was discharged on 06/30/23 at 4:28 PM Patient was seen independently by Nurse Practitioner. This document was prepared using [employer] dictation software. Please allow for errors in boarder hand while rare they do occur. Patient Condition at Discharge: Stable Plan - Discharge Summary Discharge Rx Participant: No New Discharge Prescriptions: New B12/Levomefolate Calcium/B-6 [Foltx Tablet] 1 each PO DAILY #30 tablet Continue Multivit-Min/FA/Lycopen/Lutein [Centrum Silver Tablet] 1 tab PO DAILY Losartan/Hydrochlorothiazide [Losartan-Hctz 100-25 mg Tab] 1 tab PO DAILY atenoloL [Tenormin] 25 mg PO DAILY Levothyroxine Sodium [Synthroid] 175 mcg PO MOTUWETHFRSA Potassium Chloride ER [K-Dur 20] 20 meq PO DAILY Pravastatin Sodium [Pravachol] 40 mg PO HS Alendronate Sodium 70 mg PO WE amLODIPine [Norvasc] 2.5 mg PO DAILY Levothyroxine Sodium [Synthroid] 87.5 mcg PO LOPEZ Discharge Medication List Losartan/Hydrochlorothiazide [Losartan-Hctz 100-25 mg Tab] 1 tab PO DAILY 10/21/17 [History] Multivit-Min/FA/Lycopen/Lutein [Centrum Silver Tablet] 1 tab PO DAILY 10/21/17 [History] atenoloL [Tenormin] 25 mg PO DAILY 10/21/17 [History] Alendronate Sodium 70 mg PO WE 06/29/23 [History] Levothyroxine Sodium [Synthroid] 87.5 mcg PO LOPEZ 06/29/23 [History] Levothyroxine Sodium [Synthroid] 175 mcg PO MOTUWETHFRSA 06/29/23 [History] Potassium Chloride ER [K-Dur 20] 20 meq PO DAILY 06/29/23 [History] Pravastatin Sodium [Pravachol] 40 mg PO HS 06/29/23 [History] amLODIPine [Norvasc] 2.5 mg PO DAILY 06/29/23 [History] B12/Levomefolate Calcium/B-6 [Foltx Tablet] 1 each PO DAILY #30 tablet 06/30/23 [Rx] Follow up Appointment(s)/Referral(s): Edmundo Sanon DO [STAFF PHYSICIAN] - 1 Week (Office will call with appointment time and date.) Bola Overton MD [Primary Care Provider] - 1-2 days Patient Instructions/Handouts: Chest Pain (GEN) Activity/Diet/Wound Care/Special Instructions: Follow up as directed, sooner if worsening symptoms, problems, or concerns. Discharge Disposition: HOME SELF-CARE
== END 2023-06-30 16:52 | disposition home or self-care (01) ==
LOC: EC 11:01 → 6NMEDSUR 14:38
PROVIDERS: ADMIT Family Medicine; ATTEND Family Medicine
DX: R07.89 Other chest pain (principal); I45.10 Unspecified right bundle-branch block; R00.1 Bradycardia, unspecified; E87.1 Hypo-osmolality and hyponatremia; E83.52 Hypercalcemia; E87.8 Other disorders of electrolyte and fluid balance, not elsewhere classified; I10 Essential (primary) hypertension; E78.5 Hyperlipidemia, unspecified; E06.3 Autoimmune thyroiditis; R73.9 Hyperglycemia, unspecified; D75.89 Other specified diseases of blood and blood-forming organs; E78.1 Pure hyperglyceridemia; G62.9 Polyneuropathy, unspecified; M06.9 Rheumatoid arthritis, unspecified; R20.0 Anesthesia of skin; R20.2 Paresthesia of skin; Z79.83 Long term (current) use of bisphosphonates; Z79.890 Hormone replacement therapy; Z79.899 Other long term (current) drug therapy; Z90.49 Acquired absence of other specified parts of digestive tract; Z86.39 Personal history of other endocrine, nutritional and metabolic disease; Z98.890 Other specified postprocedural states; Z82.49 Family history of ischemic heart disease and other diseases of the circulatory system; Z83.49 Family history of other endocrine, nutritional and metabolic diseases; Z83.42 Family history of familial hypercholesterolemia
CPT/HCPCS: 96365; 96366; 99285; 36415; 93005; 93306; 93351; 84439; 82652; 80061; 80053; 80048; 84443; 82330; 82607; 82746; 83735; 84484; 85025; 83970; 83036; 71046; 76536; G0378 ×2; J3475